=== PATIENT | male | born 1985 | race American Indian/Alaskan Native ===

== ENCOUNTER 2019-12-21 16:08 | Emergency (ER) | payer OTHER ==
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
[2019-12-21 20:55] VITALS: BP 140/86
== END 2019-12-21 20:45 | disposition home or self-care (01) ==
LOC: ED 16:08
DX: T14.8XXA Other injury of unspecified body region, initial encounter (principal); M54.2 Cervicalgia; M54.5 Low back pain; M79.675 Pain in left toe(s); Z79.899 Other long term (current) drug therapy; V49.49XA Driver injured in collision with other motor vehicles in traffic accident, initial encounter; Y93.89 Activity, other specified; Y92.410 Unspecified street and highway as the place of occurrence of the external cause; Y99.8 Other external cause status
CPT/HCPCS: 72040; 72100